=== PATIENT | female | born 1985 | race Caucasian/White ===

== ENCOUNTER 2025-01-20 14:10 | Emergency (ER) | payer OTHER ==
[~2025-01-20] VITALS: Ht 162.6 cm; Wt 68.0 kg
[2025-01-20 14:16] VITALS: BP 114/83
[2025-01-20] MEDS: LORAZEPAM 0.5 MG TABLET PO ONE (14:30)
[2025-01-20] MEDS ORDERED: LORAZEPAM 1 MG TABLET ONE (14:31)
[2025-01-20 15:10] LABS: PLATELET COUNT (AUTO) 277 K/uL (179-408); RED BLOOD CELL COUNT(AUTO) 4.63 MIL/uL (3.63-4.92); RED CELL DISTRIBUTION WIDTH 13.2 % (12.3-17.7); WHITE BLOOD COUNT (AUTO) 8.9 K/uL (3.8-11.8)
[2025-01-20 15:18] LABS: CREATININE 0.7 mg/dL (0.6-1.3); SODIUM SERUM 139.0 mmol/L (136-145); UREA NITROGEN, BLOOD 12.0 mg/dL (7-18)
[2025-01-20 15:25] LABS: ASPARTATE AMINOTRANSFERASE 18.0 U/L (15-37); TOTAL PROTEIN, SERUM 6.9 g/dL (6.4-8.2)
[2025-01-20 16:52] VITALS: BP 109/79; TEMP 97.7; O2SAT 98
== END 2025-01-20 16:00 | disposition home or self-care (01) ==
LOC: ER 14:10
DX: G40.909 Epilepsy, unspecified, not intractable, without status epilepticus (principal); Z88.0 Allergy status to penicillin; Z88.1 Allergy status to other antibiotic agents; Z88.5 Allergy status to narcotic agent; Z88.6 Allergy status to analgesic agent; Z88.8 Allergy status to other drugs, medicaments and biological substances
CPT/HCPCS: 36415; 71045; 85025; A4606; A4663